=== PATIENT | female | born 1970 | race Caucasian/White ===

== ENCOUNTER 2022-01-04 11:31 | Emergency (ER) | payer BC ==
--- NOTE | 2022-01-04 12:21 | ERPHSYRPT ---
- History of Present Illness Time Seen by Provider: 01/04/22 11:50 Historian: patient Exam Limitations: no limitations Patient Subjective Stated Complaint: Abdominal pain Triage Nursing Assessment: Patient ambulated back to ED and transferred self to bed. Patient A+O X3. Patient's skin pink, warm and dry. Patient states she has had lower abdominal pain 10/10 on and off for two weeks. Patient states she saw her PCP and got an outpatient order to CT of abdomen and pelvis. Patient's insurance wouldn't approve test so her PCP instructed her to come to ED. Patient denies N/V diarrhea. Abdomen soft and round with BS X 4. 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 pt has had significant bilat lower abd pain intermittently over last 2 weeks. at times, pain is a 10/10. pt denies n/v/d. she denies fever. Timing/Duration: week(s) (2), intermittent Activities at Onset: none Quality: cramping Abdominal Pain Onset Location: RLQ, LLQ Pain Radiation: no radiation Severity of Pain-Max: moderate Severity of Pain-Current: mild Modifying Factors: Improves With: nothing Associated Symptoms: denies symptoms Previous symptoms: same symptoms as today Allergies/Adverse Reactions: benzonatate [From Tesgreg Mackey] Allergy (Verified 01/04/22 11:42) Hx Influenza Vaccination/Date Given: No Hx Pneumococcal Vaccination/Date Given: No Immunizations Up to Date: Yes Travel Risk - International Travel Have you traveled outside of the country in past 3 weeks: No - Coronavirus Screening Are you exhibiting any of the following symptoms?: No Close contact with a COVID-19 positive Pt in past 14-21 Days: No - Vaccine Status Have you recieved a Covid-19 vaccination: Yes 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 - Vaccination Dates Date of 2cond Vaccination (if applicable): na Dates if Unknown: na - Review of Systems Constitutional: No Symptoms Eyes: No Symptoms Ears, Nose, & Throat: No Symptoms Respiratory: No Symptoms Cardiac: No Symptoms Abdominal/Gastrointestinal: Abdominal Pain, No Nausea, No Vomiting, No Diarrhea, No Constipation Genitourinary Symptoms: No Symptoms Musculoskeletal: No Symptoms Skin: No Symptoms Neurological: No Symptoms Psychological: No Symptoms Endocrine: No Symptoms Hematologic/Lymphatic: No Symptoms Immunological/Allergic: No Symptoms All Other Systems: Reviewed and Negative - Past Medical History Pertinent Past Medical History: No Neurological History: No Pertinent History ENT History: No Pertinent History Cardiac History: No Pertinent History Respiratory History: No Pertinent History Endocrine Medical History: No Pertinent History Musculoskeletal History: No Pertinent History GI Medical History: No Pertinent History History: No Pertinent History Psycho-Social History: No Pertinent History Female Reproductive Disorders: No Pertinent History - Past Surgical History Past Surgical History: Yes Neuro Surgical History: No Pertinent History Cardiac: No Pertinent History Respiratory: No Pertinent History Gastrointestinal: No Pertinent History Genitourinary: No Pertinent History Musculoskeletal: No Pertinent History Female Surgical History: Tubal Ligation - Social History Smoking Status: Current every day smoker How long have you smoked: years Exposure to second hand smoke: No Drug Use: none Patient Lives Alone: No - Nursing Vital Signs Nursing Vital Signs: Initial Vital Signs Temperature 98.0 F 01/04/22 11:42 Pulse Rate 82 01/04/22 11:42 Respiratory Rate 18 01/04/22 11:42 Blood Pressure 125/71 01/04/22 11:42 O2 Sat by Pulse Oximetry 99 01/04/22 11:42 Pain Scale Pain Intensity 9 - Physical Exam General Appearance: no apparent distress, alert, anxiety, obese Eye Exam: PERRL/EOMI, eyes nml inspection Ears, Nose, Throat Exam: normal ENT inspection, moist mucous membranes Neck Exam: normal inspection, non-tender, supple, full range of motion Respiratory Exam: normal breath sounds, lungs clear, airway intact, No chest tenderness, No respiratory distress Cardiovascular Exam: regular rate/rhythm, normal heart sounds, normal peripheral pulses Gastrointestinal/Abdomen Exam: soft, normal bowel sounds, tenderness (llq suprapubic), guarding, No rebound Pelvic Exam: not done Rectal Exam: not done Back Exam: normal inspection, normal range of motion, No CVA tenderness Extremity Exam: normal inspection, normal range of motion, pelvis stable Neurologic Exam: alert, oriented x 3, cooperative, 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 focal diverticulitis sigmoid colon without complications Counseled pt/family regarding: diagnosis, need for follow-up, rad results - Departure Departure Disposition: Home Clinical Impression: Sigmoid diverticulitis Condition: Stable Critical Care Time: No Referrals: [facility] [Primary Care Provider] - Follow up/PCP as directed Additional Instructions: Drink clear liquid diet. advance diet as tolerated once no further abdominal pa in. take antibiotics as prescribed. Prescriptions: Hydrocodone/APAP 5/325 [[place] 5/325 mg] 1 each PO Q8H PRN PRN #6 tablet MDD 3 PRN Reason: Pain Ciprofloxacin [Cipro 500 MG] 500 mg PO BID #14 tablet Metronidazole 500 mg [Flagyl 500 MG] 500 mg PO TID #21 tablet
--- NOTE | 2022-01-04 12:42 | XRAY ---
Indication: Left lower quadrant pain 2 weeks. Fever and vomiting. Multiple contiguous axial images obtained through the abdomen and pelvis without contrast. Comparison: None Lung bases demonstrates mild dependent atelectasis. No infiltrate or effusion. Heart is not enlarged. Small hiatal hernia. Distal esophagus demonstrates mild circumferential wall thickening, probable reflux esophagitis. Noncontrasted stomach and bowel loops nonobstructed with normal appendix. Mild scattered sigmoid and lesser degree descending colonic diverticulosis. Mid sigmoid demonstrates moderate circumferential wall thickening and stranding favoring diverticulitis. No free fluid/air. Previous cholecystectomy, 23.5 cm hepatomegaly, and 13 cm splenomegaly. Remaining liver, pancreas, spleen, adrenal glands, kidneys, ureters, bladder, and uterus are unremarkable for noncontrast exam. Minimal aortoiliac calcifications without AAA. Osseous structures intact with mild lower thoracic degenerative changes. Impression: 1. Descending and sigmoid diverticulosis. Focal diverticulitis involving the mid sigmoid without complications. 2. Small hiatal hernia with distal esophageal circumferential wall thickening presumed from reflux esophagitis. 3. Incidental hepatosplenomegaly and lower thoracic degenerative changes.
[2022-01-04 13:23] VITALS: BP 125/73; PULSE 76; O2SAT 97
== END 2022-01-04 13:23 | disposition home or self-care (01) ==
LOC: EDSTATUS 11:31 → ED 11:31
DX: K57.32 Diverticulitis of large intestine without perforation or abscess without bleeding (principal); R10.31 Right lower quadrant pain; R10.32 Left lower quadrant pain; Z72.0 Tobacco use; Z79.891 Long term (current) use of opiate analgesic
CPT/HCPCS: 74176; 99283